=== PATIENT | male | born 1985 ===

== ENCOUNTER 2020-07-30 09:06 | Outpatient (CLI) | payer MEDICAID ==
[~2020-07-30] VITALS: Ht 180.3 cm; Wt 79.8 kg
[2020-07-30 09:44] VITALS: BP 124/67
[2020-07-30] MEDS ORDERED: HUMIRA40 MG/0.2 SUBQ (09:46)
--- NOTE | 2020-07-30 19:00 | Consultation ---
DATE OF CONSULTATION: 07/30/2020 CONSULTING PHYSICIAN: Brando So MD CHIEF COMPLAINT: Ulcerative colitis. HISTORY OF PRESENT ILLNESS: This is a very pleasant 34-year-old male with history of ulcerative colitis since age 18. Apparently, he was on Remicade for a while and he was doing well and then he stopped the Remicade and he had a flare up, was switched to Humira 2 months ago. He said since he has been on Humira, he has been doing good except for last few days started having some loose stools and some minimum bleeding. PAST MEDICAL HISTORY: 1. Ulcerative colitis. 2. History of recent COVID infection. PAST SURGICAL HISTORY: None. MEDICATIONS: Humira. FAMILY HISTORY: No family history of GI malignancies. SOCIAL HISTORY: Patient drinks socially. Denies any IV drug abuse or tobacco abuse. ALLERGIES: To penicillin. MEDICATIONS: See medication reconciliation list. REVIEW OF SYSTEMS: Positive for abdominal pain, diarrhea, and rectal bleeding. PHYSICAL EXAMINATION: VITAL SIGNS: Temperature 98.1, blood pressure is 124/61, pulse is 82, respirations 20. HEENT: Normocephalic, atraumatic. Sclerae anicteric. NECK: Supple. No evidence of obvious lymphadenopathy. CARDIOVASCULAR: Regular rate and rhythm. Plus S1-S2. LUNGS: Clear to auscultation bilaterally. ABDOMEN: Positive bowel sounds. Soft and nontender. No rebound. No guarding. No peritoneal sign. EXTREMITIES: No cyanosis. No clubbing. No edema. ASSESSMENT AND PLAN: This is a 34-year-old male with history of ulcerative colitis. Last colonoscopy about a year ago, which we do not have the report of it, but diagnosed since age 18, so about 16 years ago. Our plan will be to order CBC, ESR, C-reactive protein. We are going to order Humira levels including antibodies. We are going to start the patient on prednisone 40 mg and taper off. Patient to come back to the office for followup. Barndo So M.D. DR: DOC JOB#: [id number] CC:
== END 2020-07-30 11:06 | disposition home or self-care (01) ==
LOC: PAN 09:06
DX: K51.90 Ulcerative colitis, unspecified, without complications (principal); Z86.19 Personal history of other infectious and parasitic diseases; Z79.899 Other long term (current) drug therapy; Z88.0 Allergy status to penicillin; R10.9 Unspecified abdominal pain; R19.7 Diarrhea, unspecified; K62.5 Hemorrhage of anus and rectum
CPT/HCPCS: G0463

== ENCOUNTER 2020-09-16 13:37 | Outpatient (CLI) | payer MEDICAID ==
[~2020-09-16 13:37] MED LIST: HUMIRA40 MG/0.2 SUBQ
--- NOTE | 2020-09-18 15:51 | General Progress Note ---
Subjective ROS Limited/Unobtainable: Yes Allergies: Coded Allergies: PENICILLINS (Verified Allergy, Mild, Rash, 07/30/20) Objective General Appearance: alert EENT: normal ENT inspection Neck: supple Cardiovascular: normal rate Respiratory/Chest: lungs clear Abdomen: normal bowel sounds, non tender, soft Extremities: non-tender Assessment/Plan Assessment/Plan: uc s/p prednisone on Leidy improved symptoms DX 18 Y/a colonoscopy next visit Brando So MD Sep 18, 2020 15:51
== END 2020-09-16 15:37 | disposition home or self-care (01) ==
LOC: PAN 13:37
DX: K51.90 Ulcerative colitis, unspecified, without complications (principal); Z88.0 Allergy status to penicillin

== ENCOUNTER 2020-11-21 12:33 | Outpatient (CLI) | payer MEDICAID ==
[2020-11-21 12:36] VITALS: BP 137/64
--- NOTE | 2020-11-22 14:00 | General Progress Note ---
Subjective ROS Limited/Unobtainable: Yes Allergies: Coded Allergies: PENICILLINS (Verified Allergy, Mild, Rash, 07/30/20) Objective General Appearance: alert EENT: normal ENT inspection Neck: supple Cardiovascular: normal rate Respiratory/Chest: decreased breath sounds Abdomen: normal bowel sounds, non tender, soft Extremities: non-tender Assessment/Plan Assessment/Plan: Assessment/Plan Assessment/Plan: uc s/p prednisone needs another course plan colonoscopy on Leidy>>> may need increase frequency to weekly Brando So MD Nov 22, 2020 14:00
== END 2020-11-21 15:59 | disposition home or self-care (01) ==
LOC: PAN 12:33
DX: K51.90 Ulcerative colitis, unspecified, without complications (principal); Z88.0 Allergy status to penicillin
CPT/HCPCS: 99212

== ENCOUNTER → 2021-01-09 | Outpatient (CLI) | payer MEDICAID ==
[2021-01-09 14:57] VITALS: BP 126/80
== END | disposition home or self-care (01) ==
LOC: PAN 14:34
DX: R10.9 Unspecified abdominal pain (principal)
CPT/HCPCS: 99212